=== PATIENT | female | born 1980 | race Two or more races ===

== ENCOUNTER 2022-10-07 20:56 | Emergency (ER) | payer BC ==
[2022-10-07] MEDS ORDERED: LIDOCAINE 1% 10 ML VIAL SQ ONE (21:45)
[2022-10-07] MEDS ORDERED: BACITRACIN 0.9 GM PACKET OINTMENT TP ONE (22:45)
[2022-10-07 23:04] VITALS: BP 128/88; PULSE 79; RESP 16; TEMP 98
== END 2022-10-07 23:05 | disposition home or self-care (01) ==
LOC: EMS 20:57
DX: S01.111A Laceration without foreign body of right eyelid and periocular area, initial encounter (principal); N18.9 Chronic kidney disease, unspecified; X58.XXXA Exposure to other specified factors, initial encounter; Y93.89 Activity, other specified; Y92.89 Other specified places as the place of occurrence of the external cause; Y99.8 Other external cause status
CPT/HCPCS: 99282; 12013; J3490

== ENCOUNTER 2022-10-18 14:16 | Emergency (ER) | payer BC ==
[~2022-10-18] VITALS: Ht 162.6 cm; Wt 59.1 kg
[2022-10-18 14:37] VITALS: BP 148/94; PULSE 102; RESP 18; TEMP 98.4
[2022-10-18] MEDS ORDERED: MYCO250C27 PO (14:38)
[2022-10-18] MEDS ORDERED: PRED-554 PO (14:38)
[2022-10-18] MEDS ORDERED: CYCL25CA6 PO (14:38)
[2022-10-18] MEDS ORDERED: SODI650T33 PO (14:38)
[2022-10-18] MEDS ORDERED: PRED-549 PO (14:39)
[2022-10-18] MEDS ORDERED: POTA8TAB72 PO (14:39)
[2022-10-18] MEDS ORDERED: BACITRACIN ZINC/POLYMYXIN B 14.2 GM OINTMENT TP ONE (15:15)
== END 2022-10-18 18:25 | disposition home or self-care (01) ==
LOC: EMS 14:33
DX: S01.111D Laceration without foreign body of right eyelid and periocular area, subsequent encounter (principal); Z48.02 Encounter for removal of sutures; Z79.899 Other long term (current) drug therapy; W45.8XXD Other foreign body or object entering through skin, subsequent encounter
CPT/HCPCS: 99282; Z7502; Z7610